=== PATIENT | male | born 1995 | race Caucasian/White ===

== ENCOUNTER 2024-10-10 02:12 | Emergency (ER) | payer OTHER ==
[2024-10-10 02:23] VITALS: RESP 18
--- NOTE | 2024-10-10 02:30 | ED ---
Upper Extremity HPI - General Chief Complaint: Extremity Injury, Upper Stated Complaint: left arm pain Time Seen by Provider: 10/10/24 02:24 Source: patient, RN notes reviewed Mode of arrival: ambulatory Limitations: no limitations - History of Present Illness Initial Comments: This is a 29-year-old male who presents to the emergency department for left arm pain. States that a few hours prior to arrival he was reaching for something in a doorway. He was propping himself up with his left arm and when he was leaning he felt two cracks in his arm near the forearm and elbow area and has since had pain and stiffness. Believes that he may have put too much pressure on it. He has not yet taken anything for pain control. He is still able to move the arm. MD Complaint: Injury to:: left, arm - Related Data Allergies Allergy/AdvReac Type Severity Reaction Status Date / Time No Known Allergies Allergy Verified 10/10/24 02:18 Review of Systems ROS Statement: Those systems with pertinent positive or pertinent negative responses have been documented in the HPI. ROS Other: All systems not noted in ROS Statement are negative. Past Medical History Past Medical History: Liver Disease Additional Past Medical History / Comment(s): fatty liver History of Any Multi-Drug Resistant Organisms: None Reported Past Surgical History: No Surgical Hx Reported Past Psychological History: Anxiety Smoking Status: Never smoker Past Alcohol Use History: None Reported Past Drug Use History: Marijuana General Exam Limitations: no limitations General appearance: alert, in no apparent distress Head exam: Present: atraumatic, normocephalic, normal inspection Respiratory exam: Present: normal lung sounds bilaterally. Absent: respiratory distress, wheezes, rales, rhonchi, stridor Cardiovascular Exam: Present: regular rate, normal rhythm Extremities exam: Present: other (Mild tenderness over the left forearm and biceps. No swelling or ecchymosis. Full range of motion. 2+ radial pulses) Neurological exam: Present: alert, oriented X3, CN II-XII intact Psychiatric exam: Present: normal affect, normal mood Course Vital Signs 10/10/24 10/10/24 02:18 04:05 Temperature 98.2 F 97.9 F Pulse Rate 87 89 Respiratory 18 18 Rate Blood Pressure 160/97 161/92 O2 Sat by Pulse 96 95 Oximetry Medical Decision Making - Medical Decision Making This is a 29-year-old male who presents to the emergency department for left arm pain. Was pt. sent in by a medical professional or institution? @ -No Did you speak to anyone other than the patient for history? @ -No Did you review nursing and triage notes? @ -Yes, and I agree, it is accurate with regards to the patient's symptoms. Were old charts reviewed? @ -No Differential Diagnosis? @ -Differential Musculoskeletal Muscular strain, contusion, ligament sprain, fracture, arthritis, septic arthritis, bursitis, cellulitis, muscle spasm, nerve compression, DVT, arterial occlusion, herpes zoster, electrolyte abnormality, tumor.... This is not meant to be in all inclusive list EKG interpreted by me (3pts min.)? @ -Not obtained X-rays interpreted by me (1pt min.)? @ -XR of the left humerus and forearm obtained. My interpretation identifies no acute fractures. CT interpreted by me (1pt min.)? @ -Not obtained U/S interpreted by me (1pt. min.)? @ -Not obtained What testing was considered but not performed? (CT, X-rays, U/S, labs)? Why? @ -None What meds were considered but not given? Why? @ -None Did you discuss the management of the patient with other professionals? @ -No Did you reconcile home meds? @ -No Was smoking cessation discussed for >3mins.? @ -No Was critical care preformed (if so, how long)? @ -No Were there social determinants of health that impacted care today? How? (Homelessness, low income, unemployed, alcoholism, drug addiction, transportation, low edu. Level, literacy, decrease access to med. care, longterm, rehab)? @ -No Was there de-escalation of care discussed even if they declined? (Discuss DNR or withdrawal of care, Hospice)? @ -No What co-morbidities impacted this encounter? (DM, HTN, Smoking, COPD, CAD, Cancer, CVA, Hep., AIDS, mental health diagnosis, sleep apnea, morbid obesity)? @ -None Was patient admitted / discharged? @ -Discharged. X-ray of the left forearm obtained revealing mild fullness involving the distal forearm without other acute process. X-ray of the left humerus obtained revealing no acute findings. Imaging reviewed with Dr. Herrera and there was concern for anterior sail sign being present and a radial head occult fracture could not be excluded. He was subsequently given an arm sling for immobilization and information for follow up with orthopedics. Advised Ibuprofen/Tylenol for the mean time as well as ice and elevation. Patient discharged home in stable condition. Case discussed with ED attending, Dr. Herrera. Return precautions reviewed in depth, the patient is instructed to return to the emergency department with any new, worsening, or concerning symptoms. Patient verbalized understanding. Undiagnosed new problem with uncertain prognosis? @ -None Drug Therapy requiring intensive monitoring for toxicity (Heparin, Nitro, Insulin, Cardizem)? @ -None Were any procedures done? @ -None Diagnosis/symptom? @ -Left elbow sprain Acute, or Chronic, or Acute on Chronic? @ -Acute Uncomplicated (without systemic symptoms) or Complicated (systemic symptoms)? @ -Uncomplicated Side effects of treatment? @ -None Exacerbation, Progression, or Severe Exacerbation] @ -Not applicable Poses a threat to life or bodily function? @ -No - Radiology Data Radiology results: report reviewed, image reviewed Disposition Clinical Impression: Sprain of left elbow, Occult fracture of elbow Disposition: HOME SELF-CARE Instructions (If sedation given, give patient instructions): Elbow Sprain (ED) Additional Instructions: Return to the emergency department with any new, worsening, or concerning symptoms. Alternate with ibuprofen and Tylenol as needed for pain relief. C ontact orthopedics as listed below first thing Saturday morning. Let them know that you were seen in the emergency department and there was concern for an occult fracture of the radial head. They will schedule you for a follow up appointment. Is patient prescribed a controlled substance at d/c from ED?: No Referrals: Kiki Lucero MD [Primary Care Provider] - 1-2 days Taylor Westfall [Doctor of Osteopathic Medicine] - 1-2 days Time of Disposition: 03:58
[2024-10-10 04:12] VITALS: BP 161/92; PULSE 89; TEMP 97.9
--- NOTE | 2024-10-10 04:24 | XR ---
EXAM: XR Left Humerus, 2 or More Views CLINICAL HISTORY: Pain TECHNIQUE: Frontal and lateral views of the left humerus. COMPARISON: No relevant prior studies available. FINDINGS: Bones/joints: Unremarkable. No acute fracture. No dislocation. Soft tissues: No appreciable significant overlying acute traumatic soft tissue abnormality. No radiopaque foreign body or subcutaneous emphysema. IMPRESSION: No acute findings involving the left humerus.
--- NOTE | 2024-10-10 04:25 | XR ---
EXAM: XR Left Forearm, 2 Views CLINICAL HISTORY: ITS.REASON XR Reason: L FA pain TECHNIQUE: Frontal and lateral views of the left forearm. COMPARISON: No relevant prior studies available. FINDINGS: Bones/joints: Unremarkable. No acute fracture. No dislocation. Soft tissues: Mild fullness suggested involving the distal forearm. No radiopaque foreign body or subcutaneous emphysema. IMPRESSION: Mild fullness suggested involving the distal forearm. No radiopaque foreign body or subcutaneous emphysema. No acute osseous abnormality.
== END 2024-10-10 04:06 | disposition home or self-care (01) ==
LOC: EC 02:12
DX: S52.022A Displaced fracture of olecranon process without intraarticular extension of left ulna, initial encounter for closed fracture (principal); W22.8XXA Striking against or struck by other objects, initial encounter
CPT/HCPCS: 99283